=== PATIENT | male | born 1940 | race African-American/Black ===

== ENCOUNTER 2019-11-14 07:01 | Emergency (ER) | payer BC ==
[~2019-11-14] VITALS: Ht 190.5 cm; Wt 77.0 kg
[2019-11-14] MEDS ORDERED: TRAMADOL 50MG TABLET PO ONE (07:45)
[2019-11-14 10:32] VITALS: BP 132/72
== END 2019-11-14 10:43 | disposition home or self-care (01) ==
LOC: ER 07:51
DX: M54.5 Low back pain (principal); M25.551 Pain in right hip; I10 Essential (primary) hypertension; E11.9 Type 2 diabetes mellitus without complications; Z98.890 Other specified postprocedural states; V49.49XA Driver injured in collision with other motor vehicles in traffic accident, initial encounter; Y93.89 Activity, other specified; Y92.89 Other specified places as the place of occurrence of the external cause; Y99.8 Other external cause status
CPT/HCPCS: 72100; 73502; 99283